=== PATIENT | male | born 1985 | race Caucasian/White ===

== ENCOUNTER 2018-09-27 23:50 | Emergency (ER) | payer OTHER ==
[~2018-09-27] VITALS: Ht 177.8 cm; Wt 81.7 kg
[~2018-09-27 23:50] MED LIST: AMOX500 PO; CEPH500 PO; HYDACE5 PO; IBUP600 PO; IBUP800 PO; PENVK500 PO; PHENY100ER; PHENY100ER PO; PRED20 PO; [UNRECOGNIZED DRUG - OTHER] PO; [UNRECOGNIZED DRUG - REMARK]
[2018-09-28] MEDS ORDERED: HUMIRA20 MG/0.2 IM (00:05)
== END 2018-09-28 01:30 | disposition home or self-care (01) ==
LOC: ER 23:50
DX: S01.01XA Laceration without foreign body of scalp, initial encounter (principal); S00.12XA Contusion of left eyelid and periocular area, initial encounter; Z23 Encounter for immunization; F17.200 Nicotine dependence, unspecified, uncomplicated; W22.8XXA Striking against or struck by other objects, initial encounter
CPT/HCPCS: 12002; 70450; 90471; 90714; 99284-25